=== PATIENT | male | born 1995 | race Caucasian/White ===

== ENCOUNTER 2021-03-01 09:18 | Observation (INO) ==
[2021-03-01] MEDS ORDERED: SODIUM CHLORIDE 0.9% 1000ML 1,000 ML IV ONE (09:39)
--- NOTE | 2021-03-01 09:43 | Emergency Department Note ---
Impression & Plan Cardiac arrest with successful resuscitation, Leukocytosis, Heroin overdose ED Provider Note NAME: CIARA MADRIGAL AGE: 25 SEX: M : 1995 ARRIVES VIA: Ambulance INFORMANT: Patient ED PROVIDER(S): Gucci Hunter DO CHIEF COMPLAINT: Cardiac arrest HPI: Patient is a 25-year-old male who smoked heroin this morning. Friends watched him completely collapse. They checked for pulses and they started CPR as he was pulseless. Police arrived and he was still pulseless and they continued CPR for about 5 to 7 minutes. Eventually he obtained pulses. EMS eventually arrived. He was brought in. He notes that this the first time that he smoked heroin. He has never used narcotics before. Usually uses marijuana. Admits to mild headache and mild chest pain. No other complaints. ROS: See above HPI for pertinent positives & negatives. A total of 10 systems reviewed and were otherwise negative. PAST MEDICAL HISTORY:See Below PAST SURGICAL HISTORY:See Below FAMILY HISTORY:See Below SOCIAL HISTORY:See Below HOME MEDICATIONS:See Below ALLERGIES:See Below VITALS:See Below PHYSICAL EXAMINATION: GENERAL: Sitting up in bed, alert, Disheveled, slightly ill-appearing EYE EXAM: normal conjunctiva. PERRL and EOM's grossly intact. OROPHARYNX: no exudate, no erythema, lips, buccal mucosa, and tongue normal and mucous membranes are moist NECK: supple, no nuchal rigidity, no adenopathy, non-tender LUNGS: Clear to auscultation. Normal chest wall mechanics HEART: Tachycardic, S1 normal and S2 normal ABDOMEN: abdomen soft, non-tender, normo-active bowel sounds, no masses, no rebound or guarding. BACK: Back is symmetrical on inspection and there is no deformity, no midline tenderness, no CVA tenderness. SKIN: no rashes and no bruising UPPER EXTREMITIES: upper extremities are grossly normal. LOWER EXTREMITIES: No pitting edema. NEURO EXAM: Normal sensorium, cranial nerves II-XII intact, normal speech, no weakness of arms, no weakness of legs. No drift. Finger to nose intact. Gross sensation intact. MEDICAL DECISION MAKING: Patient is a 35-year-old male who was brought in for possible cardiac arrest. He smoked heroin and then collapsed. Friend started CPR. When police got there he still did not have pulses. They continued CPR. He eventually woke up after 7 minutes of CPR. IV was dosed blood work was obtained. Labs show mild leukocytosis 14,000 here. No significant anemia. BMP with a glucose elevated 274. LFTs bilirubin troponin were negative. Lipase are unremarkable. Covid was negative. Chest x-ray with a question left lower lobe infiltrate. Borderline hypoxic at 89 to 90%. He was given IV fluids. With the questionable cardiac arrest did recommend admission although I favor that this was likely not a true cardiac arrest. Triage Nursing notes reviewed. Limited review of prior medical records performed Vital Signs: reviewed and remarkable for tachy Differential diagnosis: Differential diagnoses includes but is not limited to acute coronary syndrome, myocardial infarction, pericarditis, pulmonary embolus, aortic dissection, pneumonia, pneumothorax, musculoskeletal, shingles, esophageal. ER treatment provided: See below Diagnostics interpreted by me: ECG: Sinus tachycardia rate of 111 Normal axis No PVCs QTC 443 Cardiac Monitoring: An order was placed for continuous cardiac monitoring. The monitor shows a rate of 102 with sinus rhythm. Laboratory studies: As stated above and show below. Imaging studies: Portable AP upright 1 view of the chest discussed above Consultation(s): Discussed with Dr. Morales Angel. Procedures: none Critical Care: None Past Med/Surg History Medical History (Updated 03/01/21 @ 15:41 by Gucci Hunter DO) Bipolar 1 disorder Schizophrenia Surgical History (Updated 03/01/21 @ 11:07 by Morales Angel MD) No pertinent past surgical history Social History Smoking Status: Current every day smoker Tobacco Type: Cigarettes and E-cigarettes / Vaping Second Hand Exposure: No; Do You Dip or Chew Tobacco: No; Tobacco Cessation Education Requested by Patient: No Hx Alcohol Use: Yes Hx Substance Use: Yes Last Used Substance: Just Prior to Arrival Preferred Language: Occitan Cane Stripper Required: No Beliefs That Will Affect Care: None Current Living Situation: Other Current Living Situation Comment: Roomates Other Information That Helps Us Care for You: No Feels Safe at Home: Yes Safety Concerns: Feels Safe At This Time Assistive Devices: None Allergies Allergies Allergy/AdvReac Type Severity Reaction Status Date / Time No Known Allergies Allergy Unverified 03/01/21 10:10 Home Meds Home Medications Medication Instructions Recorded Confirmed cannabidiol 100 mg PO DAILY 03/01/21 03/01/21 oxcarbazepine [Trileptal] 5 mg PO DAILY 03/01/21 03/01/21 ziprasidone HCl 10 mg PO DAILY 03/01/21 03/01/21 Results & Data (ED) Vital Signs Vital Signs - 24 hr 03/01/21 09:20 03/01/21 09:45 03/01/21 10:00 Temperature 37.4 C Temperature Source Oral Pulse Rate 114 H 116 H 113 H Pulse Rate [Apical] 110 H Pulse Rate from SpO2 Sensor 115 H 112 H Respiratory Rate 20 20 25 H Respiratory Effort / Characteristics Non-Labored Spontaneous Respiratory Depth Normal Blood Pressure 129/85 129/77 130/98 Blood Pressure Mean 99 94 108 Blood Pressure Position Sitting Blood Pressure Position [Right Arm] Sitting Pulse Oximetry 92 90 91 Oxygen Delivery Method Room Air Oxygen Flow Rate Sepsis Recent Fever Within 48 Hours No Sepsis New/Unexplained Change in Mental Status No Sepsis Action Taken by Nursing No Action Required Oxygen Flow Rate - Titration Pulse Oximetry Post Tiitration 03/01/21 10:15 03/01/21 10:30 03/01/21 10:35 Temperature Temperature Source Pulse Rate 103 H 95 H Pulse Rate [Apical] Pulse Rate from SpO2 Sensor 101 H 95 H Respiratory Rate 28 H 17 Respiratory Effort / Characteristics Respiratory Depth Blood Pressure 115/80 112/78 Blood Pressure Mean 91 89 Blood Pressure Position Blood Pressure Position [Right Arm] Pulse Oximetry 91 96 88 L Oxygen Delivery Method Room Air Oxygen Flow Rate 0 Sepsis Recent Fever Within 48 Hours Sepsis New/Unexplained Change in Mental Status Sepsis Action Taken by Nursing Oxygen Flow Rate - Titration 2 Pulse Oximetry Post Tiitration 94 03/01/21 10:45 03/01/21 11:00 03/01/21 11:01 Temperature Temperature Source Pulse Rate 96 H 108 H 97 H Pulse Rate [Apical] Pulse Rate from SpO2 Sensor 94 H 105 H 98 H Respiratory Rate 17 20 23 Respiratory Effort / Characteristics Respiratory Depth Blood Pressure 109/76 128/86 Blood Pressure Mean 87 100 Blood Pressure Position Blood Pressure Position [Right Arm] Pulse Oximetry 99 98 98 Oxygen Delivery Method Oxygen Flow Rate Sepsis Recent Fever Within 48 Hours Sepsis New/Unexplained Change in Mental Status Sepsis Action Taken by Nursing Oxygen Flow Rate - Titration Pulse Oximetry Post Tiitration Laboratory Data Result diagrams: 03/01/21 09:10 03/01/21 09:10 Lab Results 03/01/21 03/01/21 03/01/21 Range/Units 09:10 09:10 10:23 WBC 14.17 H (4.8-10.8) K/uL RBC 4.90 (4.7-6.1) M/uL Hgb 15.4 (14.0-18.0) g/dL Hct 44.7 (42-52) % MCV 91.2 (80-100) fL MCH 31.4 (25-34) pg MCHC 34.5 (32-36) g/dL RDW Std Deviation 43.9 (36.4-46.3) fL RDW Coeff of Neto 13.2 (11.5-14.5) % Plt Count 342 (130-400) K/uL MPV 10.3 (7.4-10.4) fL Immature Gran % (Auto) 0.3 % Neut % (Auto) 66.8 % Lymph % (Auto) 23.1 % Giles % (Auto) 8.3 % Eos % (Auto) 1.1 % Baso % (Auto) 0.4 % Neut # (Auto) 9.48 H (1.4-6.5) K/uL Lymph # (Auto) 3.27 (1.2-3.4) K/uL Giles # (Auto) 1.17 H (0.11-0.59) K/uL Eos # (Auto) 0.15 (0-0.5) K/uL Baso # (Auto) 0.06 (0-0.2) K/uL Immature Gran # (Auto) 0.04 H (0.00-0.02) K/uL Sodium 138 (136-145) mmol/L Potassium 3.7 (3.5-5.1) mmol/L Chloride 105 (98-107) mmol/L Carbon Dioxide 25 (21-32) mmol/L Anion Gap 8.0 (3-11) BUN 8 (7-18) mg/dl Creatinine 1.21 (0.6-1.4) mg/dl Est Cr Clr Drug Dosing 93.3 ml/min Est GFR ( Amer) 95.9 Est GFR (Non-Af Amer) 82.7 BUN/Creatinine Ratio 6.3 L (10-20) Glucose 274 H (70-99) mg/dl Calcium 8.0 L (8.5-10.1) mg/dl Total Bilirubin 0.3 (0.2-1) mg/dl AST 15 (15-37) U/L ALT 31 (12-78) U/L Alkaline Phosphatase 82 (45-117) U/L Troponin I < 0.015 (0-0.045) ng/ml Total Protein 7.4 (6.4-8.2) gm/dl Albumin 3.9 (3.4-5.0) gm/dl Globulin 3.5 (2.5-4.0) gm/dl Albumin/Globulin Ratio 1.1 (0.9-2) Lipase 135 (73-393) U/L COVID-19 Eval Order CovFluRsv at [facility] SARS-CoV-2 (PCR) (Negative) Influenza Type A (PCR) (Neg) Influenza Type B (PCR) (Neg) RSV (RT-PCR) (Neg) 03/01/21 Range/Units 10:23 WBC (4.8-10.8) K/uL RBC (4.7-6.1) M/uL Hgb (14.0-18.0) g/dL Hct (42-52) % MCV (80-100) fL MCH (25-34) pg MCHC (32-36) g/dL RDW Std Deviation (36.4-46.3) fL RDW Coeff of Neto (11.5-14.5) % Plt Count (130-400) K/uL MPV (7.4-10.4) fL Immature Gran % (Auto) % Neut % (Auto) % Lymph % (Auto) % Giles % (Auto) % Eos % (Auto) % Baso % (Auto) % Neut # (Auto) (1.4-6.5) K/uL Lymph # (Auto) (1.2-3.4) K/uL Giles # (Auto) (0.11-0.59) K/uL Eos # (Auto) (0-0.5) K/uL Baso # (Auto) (0-0.2) K/uL Immature Gran # (Auto) (0.00-0.02) K/uL Sodium (136-145) mmol/L Potassium (3.5-5.1) mmol/L Chloride (98-107) mmol/L Carbon Dioxide (21-32) mmol/L Anion Gap (3-11) BUN (7-18) mg/dl Creatinine (0.6-1.4) mg/dl Est Cr Clr Drug Dosing ml/min Est GFR ( Amer) Est GFR (Non-Af Amer) BUN/Creatinine Ratio (10-20) Glucose (70-99) mg/dl Calcium (8.5-10.1) mg/dl Total Bilirubin (0.2-1) mg/dl AST (15-37) U/L ALT (12-78) U/L Alkaline Phosphatase (45-117) U/L Troponin I (0-0.045) ng/ml Total Protein (6.4-8.2) gm/dl Albumin (3.4-5.0) gm/dl Globulin (2.5-4.0) gm/dl Albumin/Globulin Ratio (0.9-2) Lipase (73-393) U/L COVID-19 Eval Order SARS-CoV-2 (PCR) NEGATIVE (Negative) Influenza Type A (PCR) Negative (Neg) Influenza Type B (PCR) Negative (Neg) RSV (RT-PCR) Negative (Neg) Administered Medications Sodium Chloride (Nss 1000ml) 1,000 mls @ 125 mls/hr IV .Q8H ALISIA Stop: 03/01/21 21:14 Last Admin: 03/01/21 14:34 Dose: 125 mls/hr Documented by: [id number] Discontinued Medications Sodium Chloride (Nss 1000ml) 1,000 mls @ 999 mls/hr IV .Q1H1M ONE Stop: 03/01/21 10:39 Last Infusion: 03/01/21 11:20 Dose: 0 mls/hr Documented by: [id number] Admin: 03/01/21 10:05 Dose: 999 mls/hr Documented by: [id number] Imaging Data Radiologist's Impression: Chest X-Ray 03/01/21 09:39 XR chest 1V portable CLINICAL HISTORY: Atypical chest pain OVERDOSE COMPARISON STUDY: No previous studies for comparison. FINDINGS: The heart is normal in size. There is no failure. There is no pneumothorax. There are no pleural effusions. There are equivocal minimal left basilar airspace opacities.[ IMPRESSION: 1. Equivocal minimal left basilar airspace opacities. ACT 112: Negative or not required by law. Electronically signed by: Mayo Whitney M.D. 03/01/2021 10:02 AM Discharge Plan Visit Data Chief Complaint: Overdose (Intentional) Stated Complaint: OVERDOSE, POST ARREST ED Provider: Gucci Hunter Discharge Problem: Cardiac arrest with successful resuscitation, Leukocytosis, Heroin overdose Patient Disposition: Admitted As Inpatient Discharge Instructions Interventions: ED Discharge Assessment Last Done: 03/01/21 12:21 Discharge Problem: Leukocytosis Qualifiers: Leukocytosis type: unspecified Qualified Code(s): D72.829 - Elevated white blood cell count, unspecified Heroin overdose Qualifiers: Encounter type: initial encounter Injury intent: undetermined intent Qualified Code(s): T40.1X4A - Poisoning by heroin, undetermined, initial encounter
[2021-03-01 10:03] LABS: Basophils # (auto) 0.06 K/uL (0-0.2); Basophils % (auto) 0.4 %; Eosinophils # (auto) 0.15 K/uL (0-0.5); Eosinophils % (auto) 1.1 %; Hematocrit (blood only) 44.7 % (42-52); Hemoglobin 15.4 g/dL (14.0-18.0); Immature Granulocytes # (auto) 0.04 K/uL (0.00-0.02); Immature Granulocytes % (auto) 0.3 %; Lymphocytes # (auto) 3.27 K/uL (1.2-3.4); Lymphocytes % (auto) 23.1 %; Mean Corpuscular Hemoglobin 31.4 pg (25-34); Mean Corpuscular Hgb Conc 34.5 g/dL (32-36); Mean Corpuscular Volume 91.2 fL (80-100); Mean Platelet Volume 10.3 fL (7.4-10.4); Monocytes # (auto) 1.17 K/uL (0.11-0.59); Monocytes % (auto) 8.3 %; Neutrophils # (auto) 9.48 K/uL (1.4-6.5); Neutrophils % (auto) 66.8 %; Platelet Count 342 K/uL (130-400); RDW Coefficient of Variation 13.2 % (11.5-14.5); RDW Standard Deviation 43.9 fL (36.4-46.3); White Blood Count 14.17 K/uL (4.8-10.8)
--- NOTE | 2021-03-01 10:03 | XRay Report ---
XR chest 1V portable CLINICAL HISTORY: Atypical chest pain OVERDOSE COMPARISON STUDY: No previous studies for comparison. FINDINGS: The heart is normal in size. There is no failure. There is no pneumothorax. There are no pl eural effusions. There are equivocal minimal left basilar airspace opacities.[ IMPRESSION: 1. Equivocal minimal left basilar airspace opacities. ACT 112: Negative or not required by law. Electronically signed by: Mayo Whitney M.D. 03/01/2021 10:02 AM
[2021-03-01 10:10] LABS: Alanine Aminotransferase 31 U/L (12-78); Albumin Level 3.9 gm/dl (3.4-5.0); Aspartate Aminotransferase 15 U/L (15-37); BUN Creatinine Ratio 6.3 (10-20); Blood Urea Nitrogen 8 mg/dl (7-18); Carbon Dioxide 25 mmol/L (21-32); Chloride 105 mmol/L (98-107); Creatinine Clr Calc Pharmacy 93.3 ml/min; Est GFR (African American) 95.9; Est GFR (Non-African American) 82.7; Glucose 274 mg/dl (70-99); Lipase 135 U/L (73-393); Potassium 3.7 mmol/L (3.5-5.1); Sodium 138 mmol/L (136-145)
[2021-03-01 10:14] LABS: Albumin Globulin Ratio 1.1 (0.9-2); Alkaline Phosphatase 82 U/L (45-117); Bilirubin,Total 0.3 mg/dl (0.2-1); Globulin 3.5 gm/dl (2.5-4.0); Total Protein 7.4 gm/dl (6.4-8.2); Troponin I < 0.015 ng/ml (0-0.045)
--- NOTE | 2021-03-01 10:20 | Electrocardiogram Report ---
Test Reason : Blood Pressure : / mmHG Vent. Rate : 111 BPM Atrial Rate : 111 BPM P-R Int : 146 ms QRS Dur : 086 ms QT Int : 326 ms P-R-T Axes : 048 074 030 degrees QTc Int : 443 ms Poor data quality, interpretation may be adversely affected Sinus tachycardia Otherwise normal ECG No previous ECGs available Confirmed by Bhanu Subramanian ([id number]) on 03/01/2021 10:20:39 AM Referred By: Confirmed By:Bhanu Subramanian
--- NOTE | 2021-03-01 10:45 | History & Physical Report ---
Date of Service March 01, 2021 Assessment & Plan (1) Heroin overdose: Accidental overdose. No intentional self-harm, suicidal or homicidal ideation. Narcan 0.4mg IV PRN for respiratory rate < 8. (2) Cardiac arrest with successful resuscitation: Pulselessness determined by friends and please officers on scene but did not require defibrillation. Successful resuscitation with Narcan Admit to PCU to monitor on telemetry TTE (3) Bipolar 1 disorder: Will defer to restarting his usual Trileptal due to current lethargic state to psychiatry Consult psychiatry (4) Schizophrenia: Will defer restarting his usual Geodon due to current lethargic state to psychiatry Consult psychiatry Admission and Anticipated Discharge Date Admission Date: March 01, 2021 History of Present Illness Chief Complaint: Heroin overdose Primary Care Provider: QUAN GONZALES Morales Echols is a 25-year-old male who presents to the ER via EMS after smoking heroin this morning. The patient does not remember what happened but his friends reportedly found him unresponsive and without a pulse. Therefore CPR was started and emergency services were called. Pulselessness was confirmed by police and CPR continued but no defibrillation was provided. Narcan 4mg given intranasally and the patient regained a pulse. He thinks he overdosed on heroin. Unintentional. Did it for boredom. First time. No alcohol or other illicit substances. No IV drug use. Usually used marijuana. In the ER he is complaining of mild chest pain and fatigue but other no complaints. Allergies Allergy/AdvReac Type Severity Reaction Status Date / Time No Known Allergies Allergy Unverified 03/01/21 10:10 Home Medications Medication Instructions Recorded Confirmed Type cannabidiol 100 mg PO DAILY 03/01/21 03/01/21 History oxcarbazepine [Trileptal] 5 mg PO DAILY 03/01/21 03/01/21 History ziprasidone HCl 10 mg PO DAILY 03/01/21 03/01/21 History Past Med/Surg History Medical History (Updated 03/01/21 @ 15:41 by Gucci Hunter DO) Bipolar 1 disorder Schizophrenia Surgical History (Updated 03/01/21 @ 11:07 by Morales Angel MD) No pertinent past surgical history Social History Smoking Status: Current every day smoker Tobacco Type: Cigarettes and E-cigarettes / Vaping Second Hand Exposure: No; Do You Dip or Chew Tobacco: No; Tobacco Cessation Education Requested by Patient: No Hx Alcohol Use: Yes Hx Substance Use: Yes Last Used Substance: Just Prior to Arrival Preferred Language: Bur[place]ian Physical Education Department Chair Required: No Beliefs That Will Affect Care: None Current Living Situation: Other Current Living Situation Comment: Roomates Other Information That Helps Us Care for You: No Feels Safe at Home: Yes Safety Concerns: Feels Safe At This Time Assistive Devices: None Review of Systems Review of Systems: All systems reviewed & are unremarkable except as noted in HPI & below Physical Exam Constitutional: well developed and well nourished; no acute distress Eyes: PERRL, conjunctivae normal, anicteric sclerae ENMT: external ear and nose normal, oropharynx normal Neck: trachea midline, no thyromegaly Respiratory: normal respiratory effort, lungs clear to auscultation Cardiovascular: RRR, no murmur, no edema Gastrointestinal (Abdomen): normal bowel sounds, soft, nontender, no hepatosplenomegaly Musculoskeletal: no cyanosis or clubbing, extremities motor strength 5/5 Skin: no rashes, warm and dry Neurologic: moves all extremities and awake (GCS15); no focal motor deficits and not confused Cranial Nerves: PERRL Psychiatric: A+Ox3, euthymic affect Results & Data Results & Data ([facility]) Vital Signs (Past 12 Hours) Vital Signs Temp Pulse Pulse Resp BP Pulse Ox 03/01/21 09:45 116 H 20 129/77 90 03/01/21 09:20 37.4 C 114 H 110 H 20 129/85 92 Diagnostic Findings XR chest 1V portable IMPRESSION: 1. Equivocal minimal left basilar airspace opacities. Medications Administered ER medications given: NSS 1L bolus ECG Indication: other (S/p possible cardiac arrest) Rate (beats per minute): 111 Rhythm: sinus tachycardia Findings: no acute ischemic change Comparison ECG Date: no prior available Code Status & VTE Plan Code Status Full VTE Prophylaxis Plan VTE Prophylaxis will be ordered: No Reason for no VTE drug order: Treatment not indicated Reason for no VTE mechanical prophylaxis: Treatment not indicated PG Care Time/CCT Total # of Minutes Spent Total Time Spent with Patient: Total time spent is greater than 50% in coordination of care (as documented) at patient's floor/unit and/or counseling patient: Coding Level of Care Code 04534 Initial Inpt Care Lvl 3 Diagnoses Heroin overdose T40.1X1A Cardiac arrest with successful resuscitation I46.9 Bipolar 1 disorder F31.9 Schizophrenia F20.9
[2021-03-01 11:33] LABS: Influenza A virus by PCR Negative (Neg); Influenza B virus by PCR Negative (Neg); RSV by PCR Negative (Neg); SARS CoV2 RNA(COVID-19) InHosp NEGATIVE (Negative)
[2021-03-01] MEDS ORDERED: POLYETHYLENE (MIRALAX) 17 GM PACK PO PRN (13:06)
[2021-03-01] MEDS ORDERED: ACETAMINOPHEN 325 MG TAB PO PRN (13:06)
[2021-03-01] MEDS ORDERED: NALOXONE HCL 0.4 MG/1 ML VIAL/CARP IV PRN (13:06)
[2021-03-01] MEDS ORDERED: ONDANSETRON INJ 2 MG/ML 2 ML VIAL IV PRN (13:06)
[2021-03-01] MEDS ORDERED: SODIUM CHLORIDE 0.9% 1000ML 1,000 ML IV SCH (13:15)
[2021-03-01 16:05] LABS: Appearance Urine Clear (Clear); Bilirubin Urine Negative (Negative); Blood Urine Negative (Negative); Color Urine Yellow; Glucose Urine UA 1+ (Negative); Ketones Urine Negative (Negative); Leukocyte Esterase Urine Negative (Negative); Nitrite Urine Negative (Negative); Protein Urine Negative (Negative); Specific Gravity Urine 1.015 (1.000-1.030); Urobilinogen Urine Negative (Negative); pH Urine 6.5 (4.5-7.5)
[2021-03-01 16:24] LABS: Amphetamines+Metham, Urine Neg (Neg); Barbiturates, Urine Neg (Neg); Benzodiazepine, Urine Neg (Neg); Cocaine, Urine Neg (Neg); MDMA (Ecstacy), Urine Neg (Neg); Methadone, Urine Neg (Neg); Opiate, Urine Neg (Neg); Phencyclidine, Urine Neg (Neg)
[2021-03-01] MEDS ORDERED: GLUCAGON FOR INJ 1 MG VIAL SQ PRN (18:01)
[2021-03-01] MEDS ORDERED: GLUCOSE 10 TABS/TUBE PO PRN (18:01)
[2021-03-01] MEDS ORDERED: GLUCOSE 40% GEL 15 GM TUBE PO PRN (18:01)
[2021-03-01] MEDS ORDERED: DEXTROSE 50% 50 ML SYRINGE IV PRN (18:01)
[2021-03-01] MEDS ORDERED: CARBOHYDRATES FOR HYPOGLYCEMIA PO PRN (18:01)
[2021-03-01] MEDS: INSULIN ASPART 100 UNITS/ML 3 ML PEN SC SCH (21:04)
[2021-03-02 05:12] LABS: Basophils # (auto) 0.02 K/uL (0-0.2); Basophils % (auto) 0.2 %; Eosinophils # (auto) 0.25 K/uL (0-0.5); Eosinophils % (auto) 2.1 %; Hematocrit (blood only) 40.8 % (42-52); Hemoglobin 14.4 g/dL (14.0-18.0); Immature Granulocytes # (auto) 0.01 K/uL (0.00-0.02); Immature Granulocytes % (auto) 0.1 %; Lymphocytes # (auto) 1.89 K/uL (1.2-3.4); Lymphocytes % (auto) 15.8 %; Mean Corpuscular Hemoglobin 31.2 pg (25-34); Mean Corpuscular Hgb Conc 35.3 g/dL (32-36); Mean Corpuscular Volume 88.5 fL (80-100); Mean Platelet Volume 9.9 fL (7.4-10.4); Monocytes # (auto) 0.84 K/uL (0.11-0.59); Neutrophils # (auto) 8.97 K/uL (1.4-6.5); Neutrophils % (auto) 74.8 %; Platelet Count 254 K/uL (130-400); RDW Coefficient of Variation 13.2 % (11.5-14.5); RDW Standard Deviation 42.7 fL (36.4-46.3); Red Blood Count 4.61 M/uL (4.7-6.1); White Blood Count 11.98 K/uL (4.8-10.8)
[2021-03-02 05:43] LABS: BUN Creatinine Ratio 7.3 (10-20); Blood Urea Nitrogen 5 mg/dl (7-18); Calcium 7.9 mg/dl (8.5-10.1); Carbon Dioxide 24 mmol/L (21-32); Chloride 111 mmol/L (98-107); Creatinine Clr Calc Pharmacy 155.4 ml/min; Est GFR (African American) > 150.0; Est GFR (Non-African American) 130.4; Glucose 91 mg/dl (70-99); Potassium 3.8 mmol/L (3.5-5.1); Sodium 140 mmol/L (136-145)
[2021-03-02] MEDS: INSULIN ASPART 100 UNITS/ML 3 ML PEN SC SCH (07:42)
--- NOTE | 2021-03-02 08:32 | XCELERA ---
[id number]
--- NOTE | 2021-03-02 08:36 | XRay Report ---
SINGLE VIEW CHEST CLINICAL HISTORY: Overdose. Clinical concern for aspiration. FINDINGS: An AP, portable, upright chest radiograph is compared to study dated 03/01/2021. The cardiome diastinal silhouette is unremarkable. The lungs and pleural spaces are clear. No pneumothorax is seen . The bony thorax is grossly intact. IMPRESSION: No active disease in the chest. Left basilar opacities suggested yesterday appear to have resolved. ACT 112: Negative or not required by law. Electronically signed by: Vishal Barnhart M.D. 03/02/2021 8:35 AM
--- NOTE | 2021-03-02 09:23 | Communication Note ---
Date of Service: March 02, 2021 consulted yesterday for medication recommendations. Patient was initially somnolent and has answered limited questions by liaisons other than to re- confirm that his behavior was recreational drug use and to deny any desire to self-harm. His outpatient medications--Trileptal and Geodon were held on admission due to somnolence. The patient is able to resume these medications at previous doses when medically cleared for discharge. He has already indicated he has follow up plan with Dr. De Dios. Discussed with Dr. Zamora who will re-consult if need arises prior to discharge.
--- NOTE | 2021-03-02 09:38 | Discharge Summary ---
Date of Service March 02, 2021 Admission HPI Per Admitting Provider Morales Echols is a 25-year-old male who presents to the ER via EMS after smoking heroin this morning. The patient does not remember what happened but his friends reportedly found him unresponsive and without a pulse. Therefore CPR was started and emergency services were called. Pulselessness was confirmed by police and CPR continued but no defibrillation was provided. Narcan 4mg given intranasally and the patient regained a pulse. He thinks he overdosed on heroin. Unintentional. Did it for boredom. First time. No alcohol or other illicit substances. No IV drug use. Usually used marijuana. In the ER he is complaining of mild chest pain and fatigue but other no complaints. Admission Exam Per Admitting Provider Constitutional: well developed and well nourished; no acute distress Eyes: PERRL, conjunctivae normal, anicteric sclerae ENMT: external ear and nose normal, oropharynx normal Neck: trachea midline, no thyromegaly Respiratory: normal respiratory effort, lungs clear to auscultation Cardiovascular: RRR, no murmur, no edema Gastrointestinal (Abdomen): normal bowel sounds, soft, nontender, no hepatosplenomegaly Musculoskeletal: no cyanosis or clubbing, extremities motor strength 5/5 Skin: no rashes, warm and dry Neurologic: moves all extremities and awake (GCS15); no focal motor deficits and not confused Cranial Nerves: PERRL Psychiatric: A+Ox3, euthymic affect Principal Diagnosis Heroin overdose Hyperglycemia Marijuana use Cardiac arrest with successful resuscitation Discharge Exam GENERAL : No acute distress EYES: No icterus, gaze conjugate NOSE: No evidence of epistaxis MOUTH: No lesions or candidiasis NECK: Supple LUNGS: CTA B/L, no wheezes, rales or rhonchi HEART: Regular, rate controlled in the 80s. No ectopy ABDOMEN: Soft, NT, ND, BS Present CHEST: No chest pain with palpation. No evidence of ecchymosis or abrasion. Multiple tattoos. EXTREMITIES: No LE edema, pedal pulses intact NEURO: A&OX3 Discharge Data Allergies Allergy/AdvReac Type Severity Reaction Status Date / Time No Known Allergies Allergy Unverified 03/01/21 10:10 Consultations 03/01/21 10:22 ED Decision to Admit Stat Procedures Performed Cardiopulmonary resuscitation in the field prior to arrival Ordered Studies 03/02/21 04:52 03/02/21 04:52 03/01/21 09:10 Troponin I < 0.015 Diabetes Follow up Patient advised to follow-up with primary care provider for hyperglycemia. Hemoglobin A1c is pending. Hospital Course (1) Heroin overdose: Patient smoked heroin and had cardiac arrest CPR performed in the field with successful return of spontaneous circulation Monitored on telemetry overnight with no arrhythmias identified Patient counseled on avoiding marijuana and heroin use as well as other illicit substances Patient counseled on complete abstention from tobacco products (2) Cardiac arrest with successful resuscitation: Secondary to heroin overdose Cardiac compressions followed by Courtney with return of spontaneous circulation Patient advised that it would be best to continue to observe for several more hours due to possibility of cardiac contusion Patient adamant on discharge Advised patient to follow-up primary care provider in the next 24 to 48 hours Report back to the emergency department with any chest pain, shortness of breath, diaphoresis, nausea, vomiting Troponin less than 0.015 No arrhythmias on telemetry (3) Hyperglycemia: Patient denies any family history of diabetes mellitus or hyperglycemia Patient denies any personal history of diabetes mellitus Sugars could be elevated secondary heroin use This morning sugars are better controlled Hemoglobin A1c is currently pending Advised patient to follow-up with primary care physician regarding follow-up on A1c as well as hyperglycemia (4) Marijuana use: Advised patient to stop use of marijuana products Recommended no use of any illicit substances (5) Schizophrenia: No command hallucinations No other tactile hallucinations Continue Geodon on discharge (6) Bipolar 1 disorder: Continue Trileptal Continue Geodon Outpatient follow-up advised Total Time Total Time Spent Total Time Spent (In Minutes): 35 Total Time Includes: Examination of the Patient, Discharge Planning, Medication Reconciliation, Communication With Other Providers and Other (Problem reconciliation and patient counseling regarding illicit drug use) Discharge Plan Discharge Items Patient Disposition: Home - Self-Care Reason For Visit: HEROIN OVERDOSE Discharge Diagnosis: Heroin overdose Hyperglycemia Marijuana use Health Concerns: Late effects of cardiopulmonary resuscitation and heroin use Activity: Resume your previous activity Lifting: Gradually increase as tolerated Bathing: No limitations Sexual Activity: When tolerated Exercise/Sports: Gradually increase as tolerated Driving/Machine Use: Resume 1 day after discharge Non-emergency contact: Primary Care Provider Call non-emergency contact if: your symptoms worsen, your pain is not controlled and you have a fever Follow-up/Referrals: Emiliano De Dios MD [Outside Practitioners] - Winifred Patterson D.O. [Outside Practitioners] - Diet: Regular Addtl Attending Provider Instructions: You were admitted with accidental overdose from heroin use. You had a cardiac arrest in the field and received cardiopulmonary resuscitation including chest compressions. Your echocardiogram shows some trace valvular regurgitation. You are also found to have high sugar levels on admission. You have stated that there is no history of diabetes mellitus in your family and no personal history of diabetes mellitus. Hemoglobin A1c is currently pending to check diabetes status. You should follow-up with your family doctor within 1 to 2 days as you could have late effects of heroin use and late effects from cardiac compr essions. You should also follow-up with your family doctor regarding your elevated sugar while at [facility]. You were advised to completely avoid marijuana, heroin, illicit substances, tobacco use. Pending Studies at Discharge: Yes Studies:: Hemoglobin A1c Stand-Alone Forms: My [facility], Smoking Cessation Medications and DC Order Prescriptions: Continued oxcarbazepine [Trileptal] 150 mg tablet 5 mg PO DAILY RF: 0 ziprasidone HCl 20 mg capsule 10 mg PO DAILY RF: 0 cannabidiol 100 mg/mL Solution 100 mg PO DAILY RF: 0 Discharge Orders: Discharge Order (Routine); Ordered 03/02/21 Ordered By: Vishal Robledo/Other Patient Handouts: ED Overdose, Opiate Admission Data Admit Date/Time: 03/01/21 11:13 Attending Provider: Nate Zamora Admit Provider: Morales Angel Primary Care Provider: PT,JANET Other Providers: Morales Angel Other Interventions: Discharge Summary Assessment (RN) Last Done: 03/02/21 09:39 Supervising Physician Co-Signing Physician Notes Patient seen and examined on the day of discharge. I agree with the discharge summary by Vishal LONGO. I have reviewed the chart including labs, imaging and plans for discharge. patient is feeling well, vitals stable, no arrhythmia on discharge he is laughing about what happened, says it was a close call I explained that he could have , that he has children at home, that this is not something to take lightly he is only worried about how mad his will be with him I told him to report back to the emergency room if he has chest pain, dyspnea, syncope, nausea/vomiting I spoke with psychiatry, recommend continuing Geodon and Trileptal - Heroin abuse with cardiac arrest, ROSC with Narcan and compressions no issues since admission advised patient to avoid all illicit drugs and alcohol, especially with his psychiatry history educated him on reasons to return to the hospital Coding Level of Care Code D/C Day Management >30 mins Diagnoses Heroin overdose T40.1X4A Encounter type: initial encounter Injury intent: undetermined intent Cardiac arrest with successful resuscitation I46.9 Hyperglycemia R73.9 Marijuana use F12.90 Schizophrenia F20.9 Bipolar 1 disorder F31.9 Time Spent (min) 35
[2021-03-03 06:35] LABS: Estimated Average Glucose 114 mg/dl; Hemoglobin A1C 5.6 % (4.5-5.6)
[2021-03-05 08:19] LABS: Marijuana Quant, GCMS Urine 1890 ng/mL (<5)
== END 2021-03-02 10:08 | disposition home or self-care (01) ==
LOC: ED 09:18 → INTOOBSV 11:13 → SUATTDRO 11:13 → 1E 11:13